=== PATIENT | male | born 1945 | race Caucasian/White ===

== ENCOUNTER 2017-08-15 21:34 | Emergency (ER) | payer OTHER ==
[~2017-08-15] VITALS: Ht 175.3 cm; Wt 65.8 kg
[2017-08-16 07:00] LABS: Basophils # (auto) 0.1 uL; Basophils % (auto) 0.9 % (0.0-2.0); Eosinophils # (auto) 0.2 uL; Eosinophils % (auto) 1.2 % (0.0-7.0); Hematocrit 42.6 % (41.0-53.0); Hemoglobin 14.1 g/dL (13.5-17.5); Lymphocytes # (auto) 1.8 uL; Lymphocytes % (auto) 14.6 % (10.0-50.0); Mean Corpuscular Hemoglobin 28.7 pg (28.0-32.0); Mean Corpuscular Hgb Conc. 33.1 g/dL (32.0-36.0); Mean Corpuscular Volume 86.7 fL (80.0-100.0); Monocytes # (auto) 0.6 uL; Neutrophils # (auto) 9.9 uL; Neutrophils % (auto) 78.3 % (37.0-80.0); Platelet Count (auto) 294 10^3/uL (140-450); Red Blood Cells 4.91 10^6/uL (4.5-5.90); Red Cell Distribution Width 15.2 % (11.8-14.3); White Blood Cell 12.7 10^3/uL (4.4-10.8)
[2017-08-16 07:17] LABS: Albumin 3.1 g/dL (3.4-5.0); BUN/Creatinine Ratio 14.1; Calcium 8.7 mg/dL (8.5-10.1); Magnesium 2.3 mg/dL (1.6-2.6); Potassium 4.2 mmol/L (3.5-5.1)
[2017-08-16 07:22] LABS: Bilirubin, Total 0.7 mg/dL (0.2-1.0); Total Protein 7.2 g/dL (6.4-8.2)
[2017-08-16] MEDS ORDERED: NITROGLYCERIN 0.4 MG SL TAB SL ONE (07:30)
[2017-08-16] MEDS ORDERED: ASPirin 81 mg TAB PO ONE (07:30)
[2017-08-16] MEDS ORDERED: cloNIDine HCL 0.1 MG TAB PO ONE (07:30)
[2017-08-16] MEDS ORDERED: ENOXAPARIN SOD 80 MG/0.8ML SYRINGE SC ONE (08:15)
[2017-08-16 13:48] VITALS: BP 135/94
== END 2017-08-16 14:06 | disposition home or self-care (01) ==
LOC: ER 21:38
DX: I24.9 Acute ischemic heart disease, unspecified (principal); J44.9 Chronic obstructive pulmonary disease, unspecified; E78.5 Hyperlipidemia, unspecified; F17.210 Nicotine dependence, cigarettes, uncomplicated
CPT/HCPCS: 36415; 71046; 80053; 83735; 83880; 84484; 85025; 93005; 96372; 99285; J1650

== ENCOUNTER 2019-07-01 13:20 | Emergency (ER) | payer OTHER ==
[~2019-07-01] VITALS: Ht 175.3 cm; Wt 88.5 kg
[2019-07-01 14:42] LABS: Basophils # (auto) 0.1 10 ^3/uL (0-0.2); Basophils % (auto) 0.7 % (0.0-2.0); Eosinophils # (auto) 0.3 10 ^3/uL (0-0.8); Eosinophils % (auto) 2.4 % (0.0-7.0); Hematocrit 43.6 % (41.0-53.0); Hemoglobin 14.4 g/dL (13.5-17.5); Lymphocytes # (auto) 2.3 10 ^3/uL (0.4-5.4); Mean Corpuscular Hemoglobin 29.6 pg (28.0-32.0); Mean Corpuscular Volume 89.7 fL (80.0-100.0); Monocytes # (auto) 0.9 10 ^3/uL (0-1.3); Monocytes % (auto) 7.6 % (0.0-12.0); Neutrophils # (auto) 8.1 10 ^3/uL (1.6-8.6); Neutrophils % (auto) 69.3 % (37.0-80.0); Platelet Count (auto) 316 10^3/uL (140-450); Red Blood Cells 4.85 10^6/uL (4.5-5.90); Red Cell Distribution Width 14.9 % (11.8-14.3); White Blood Cell 11.7 10^3/uL (4.4-10.8)
[2019-07-01 15:02] LABS: Albumin 3.2 g/dL (3.4-5.0); Calcium 8.5 mg/dL (8.5-10.1); Potassium 3.7 mmol/L (3.5-5.1)
[2019-07-01 15:05] LABS: BUN/Creatinine Ratio 15.5; Bilirubin, Total 0.3 mg/dL (0.2-1.0); Total Protein 7.7 g/dL (6.4-8.2)
[2019-07-01 16:32] LABS: Urine Bacteria NONE SEEN /hpf (None Seen); Urine Blood Negative /uL (Negative); Urine Hyaline Cast FEW /lpf (0 - 2); Urine WBC <1 /hpf (0 - 3)
[2019-07-01 17:28] LABS: INR 1.03 (0.9-1.15); Partial Thromboplastin Time 37.4 sec (23.64-32.05)
[2019-07-01] MEDS ORDERED: SODIUM CHLORIDE 0.9% 1,000 ML IV ONE (18:30)
[2019-07-01 22:07] VITALS: BP 151/78
== END 2019-07-01 22:14 | disposition home or self-care (01) ==
LOC: EDUNIT# 13:20 → EDBD 13:20 → ER 13:28
DX: R42 Dizziness and giddiness (principal); R00.1 Bradycardia, unspecified; H53.2 Diplopia; F17.210 Nicotine dependence, cigarettes, uncomplicated; I50.9 Heart failure, unspecified; J44.9 Chronic obstructive pulmonary disease, unspecified; E78.5 Hyperlipidemia, unspecified
CPT/HCPCS: 36415; 70450; 71045; 80053; 81001; 83735; 83880; 84484; 85025; 85610; 85730; 93005; 96360; 96361; 99285; J7030

== ENCOUNTER 2022-05-02 17:03 | Emergency (ER) | payer OTHER ==
[~2022-05-02] VITALS: Ht 172.7 cm; Wt 70.0 kg
[2022-05-02 18:05] LABS: Basophils # (auto) 0.1 10 ^3/uL (0-0.2); Eosinophils # (auto) 0 10 ^3/uL (0-0.8); Eosinophils % (auto) 0.3 % (0.0-7.0); Hematocrit 45.4 % (41.0-53.0); Hemoglobin 15.6 g/dL (13.5-17.5); Lymphocytes # (auto) 1.3 10 ^3/uL (0.4-5.4); Lymphocytes % (auto) 9.3 % (10.0-50.0); Mean Corpuscular Hgb Conc. 34.4 g/dL (32.0-36.0); Mean Corpuscular Volume 90.3 fL (80.0-100.0); Monocytes # (auto) 1.8 10 ^3/uL (0-1.3); Monocytes % (auto) 13.6 % (0.0-12.0); Neutrophils # (auto) 10.3 10 ^3/uL (1.6-8.6); Neutrophils % (auto) 75.8 % (37.0-80.0); Nucleated Red Blood Cells % 0.1 %; Red Blood Cells 5.02 10^6/uL (4.5-5.90); Red Cell Distribution Width 14.2 % (11.8-14.3); White Blood Cell 13.5 10^3/uL (4.4-10.8)
[2022-05-02 18:19] LABS: Albumin 3.9 g/dL (3.4-5.0); BUN/Creatinine Ratio 15.5; Calcium 9.1 mg/dL (8.5-10.1); Potassium 4.8 mmol/L (3.5-5.1)
[2022-05-02 18:22] LABS: Bilirubin, Total 0.5 mg/dL (0.2-1.0); Total Protein 8.5 g/dL (6.4-8.2)
[2022-05-02 18:42] LABS: INR 1.03 (0.9-1.15); Partial Thromboplastin Time 44.9 sec (24.6-33.4)
[2022-05-02] MEDS ORDERED: AZIT500T PO (23:56)
[2022-05-02] MEDS ORDERED: PRED20TA2 PO (23:56)
[2022-05-02] MEDS ORDERED: ALBUAER3 IN (23:56)
[2022-05-03] VITALS: BP 115/93
[2022-05-03] MEDS ORDERED: predniSONE 20 MG TAB PO ONE
[2022-05-03] MEDS ORDERED: IPRATROPIUM BROM 0.5 MG/2.5ML INH SOL NEB ONE
[2022-05-03] MEDS ORDERED: ALBUTEROL SULF 2.5 MG/0.5ML(0.5%) NEB SOLN NEB ONE
== END 2022-05-03 00:24 | disposition home or self-care (01) ==
LOC: ER 17:03 → EDBD 17:03 → ER 05-03 00:24
DX: J44.1 Chronic obstructive pulmonary disease with (acute) exacerbation (principal); N18.30 Chronic kidney disease, stage 3 unspecified; I50.9 Heart failure, unspecified; E78.5 Hyperlipidemia, unspecified
CPT/HCPCS: 36415; 71045; 80053; 83880; 84484; 85025; 85610; 85730; 93005; 94640; 99285; J7512

== ENCOUNTER 2022-11-26 20:07 | Emergency (ER) | payer OTHER ==
[~2022-11-26] VITALS: Ht 175.3 cm; Wt 75.0 kg
[~2022-11-26 20:07] MED LIST: ALBUAER3 IN; AZIT500T PO; PRED20TA2 PO
[2022-11-26] MEDS ORDERED: KETOROLAC TROMETH 30 MG/ML 1ML VIAL IV ONE (21:00)
[2022-11-26 21:27] LABS: Basophils # (auto) 0.1 10 ^3/uL (0-0.2); Basophils % (auto) 0.7 % (0.0-2.0); Eosinophils # (auto) 0 10 ^3/uL (0-0.8); Eosinophils % (auto) 0.2 % (0.0-7.0); Hematocrit 34.4 % (41.0-53.0); Hemoglobin 11.2 g/dL (13.5-17.5); Lymphocytes # (auto) 1.1 10 ^3/uL (0.4-5.4); Mean Corpuscular Hemoglobin 28.8 pg (28.0-32.0); Mean Corpuscular Hgb Conc. 32.7 g/dL (32.0-36.0); Mean Corpuscular Volume 88.1 fL (80.0-100.0); Monocytes # (auto) 1.2 10 ^3/uL (0-1.3); Monocytes % (auto) 6.7 % (0.0-12.0); Neutrophils # (auto) 15.9 10 ^3/uL (1.6-8.6); Neutrophils % (auto) 86.4 % (37.0-80.0); Red Blood Cells 3.91 10^6/uL (4.5-5.90); Red Cell Distribution Width 15.2 % (11.8-14.3); White Blood Cell 18.4 10^3/uL (4.4-10.8)
[2022-11-26 21:28] VITALS: PULSE 63; RESP 17; O2SAT 97
[2022-11-26] MEDS ORDERED: ONDANSETRON HCL 4 MG/2 ML VIAL IV ONE (21:45)
[2022-11-26 21:53] LABS: Albumin 3.1 g/dL (3.4-5.0); Calcium 7.7 mg/dL (8.5-10.1); Potassium 4.1 mmol/L (3.5-5.1)
[2022-11-26 21:57] LABS: Bilirubin, Total 0.5 mg/dL (0.2-1.0)
[2022-11-26] MEDS ORDERED: ACETAMINOPHEN 325 MG TAB PO PRN (22:00)
[2022-11-26] MEDS ORDERED: ONDANSETRON ODT 4 MG TAB PO ONE (22:00)
[2022-11-26] MEDS ORDERED: HYDROmorphone HCL 2 MG/ML VL/or syr IV ONE (22:00)
[2022-11-26] MEDS ORDERED: PANTOPRAZOLE 40 MG/10 ML VIAL INJ IV ONE (22:00)
[2022-11-26] MEDS ORDERED: SODIUM CHLORIDE 0.9% 2,250 ML IV ONE ×2 (22:00→22:45)
[2022-11-26 22:14] LABS: BUN/Creatinine Ratio 14.7 (10.0-20.0)
[2022-11-26 22:36] LABS: Base Excess -7.5 mmol/L (-2.0-2.0)
[2022-11-26 22:45] LABS: INR 1.1 (0.9-1.15); Partial Thromboplastin Time 27.2 SEC (24.5-34.5); Prothrombin Time 11.5 sec (9.3-11.8)
[2022-11-26] MEDS ORDERED: VANCOMYCIN PER PHARMACY 0 MG IV SCH (22:45)
[2022-11-26] MEDS ORDERED: PIPERACILLIN-TAZOB 3.375GM 100 ML IV ONE (22:45)
[2022-11-26] MEDS ORDERED: VANCOMYCIN 1GM/250ML 250 ML IV ONE (23:00)
[2022-11-26 23:05] LABS: Lactic Acid w/Reflex 3.3 mmol/L (0.4-2.0)
[2022-11-26] MEDS ORDERED: ALBUMIN 25% 100 ML IV ONE (23:15)
[2022-11-26 23:41] VITALS: PULSE 72; RESP 16; O2SAT 99
[2022-11-26 23:59] VITALS: TEMP 97.7; O2SAT 96
[2022-11-27] VITALS: BP 125/92; PULSE 68; RESP 17
[2022-11-27] MEDS ORDERED: fentaNYL CITRATE 100 MCG/2 ML VL IV ONE
[2022-11-27] MEDS ORDERED: ONDANSETRON HCL 4 MG/2 ML VIAL IV ONE
[2022-11-27] MEDS ORDERED: PIPERACILLIN-TAZOB 3.375GM 100 ML IV SCH
[2022-11-27 00:06] LABS: % Iron Saturation 24.3 % (20-55)
[2022-11-29 09:26] LABS: Ferritin 124.2 ng/mL (10-322)
[2022-11-29 09:27] LABS: Folate (Folic Acid) 15.03 ng/mL (5.38-24)
== END 2022-11-27 00:18 | disposition short-term general hospital (02) ==
LOC: EDBD 20:07 → ER 20:07
DX: I71.30 Abdominal aortic aneurysm, ruptured, unspecified (principal); N26.1 Atrophy of kidney (terminal); N28.1 Cyst of kidney, acquired; R79.9 Abnormal finding of blood chemistry, unspecified; Z88.8 Allergy status to other drugs, medicaments and biological substances; Z79.899 Other long term (current) drug therapy; Z79.01 Long term (current) use of anticoagulants
CPT/HCPCS: 36415; 36430; 36600; 71045; 74176; 80053; 82553; 82607; 82728; 82746; 82805; 83540; 83550; 83605; 83615; 83690; 83735; 84484; 85025; 85045; 85610; 85730; 86850; 86900; 86901; 86920; 87040; 96361; 96365; 96368; 96375; 96376; 99291; C9113; J1170; J1885; J2405; J2543; J3010; J3370; J7030; J7050; P9016